=== PATIENT | female | born 1995 | race Caucasian/White ===

== ENCOUNTER 2017-05-18 17:32 | Inpatient (IN) | payer OTHER ==
[~2017-05-18] VITALS: Ht 165.1 cm; Wt 69.0 kg
[~2017-05-18 17:32] MED LIST: ACYC400T PO; Z.0.BCPILL PO; ZITH250T PO
[2017-05-18 17:56] VITALS: BP 131/93; PULSE 104; RESP 17; TEMP 98.1; O2SAT 99
[2017-05-18] MEDS ORDERED: ACYC400T PO (18:01)
[2017-05-18] MEDS ORDERED: SODIUM CHLOR 0.9% 1000 ML INJ 1,000 ML IV SCH (18:05)
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
[2017-05-18] MEDS ORDERED: MORPHINE SULFATE 4 MG/ML INJ IV PUSH ONE ×2 (18:15→19:30)
[2017-05-18] MEDS ORDERED: SODIUM CHLORIDE 0.9% FLUSH 10 ML FLUSH IV FLUSH PRN (18:15)
[2017-05-18] MEDS ORDERED: ONDANSETRON HCL 4 MG/2 ML VIAL IVP ONE (18:15)
[2017-05-18] MEDS ORDERED: KETOROLAC TROMETHAMINE 30 MG/ML (IVP) VIAL IVP ONE (18:15)
[2017-05-18] MEDS ORDERED: TETANUS/DIPHTHERIA TOXOID ADULT 0.5 ML VIAL IM ONE (18:30)
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
--- NOTE | 2017-05-18 19:20 | PD ---
Data Data Last Documented VS Vital Signs Date Time Temp Pulse Resp B/P (MAP) Pulse Ox O2 Delivery O2 Flow Rate FiO2 05/18/17 17:56 98.1 104 17 131/93 (106) 99 Orders Orders Ice/Cold Pack (05/18/17 18:05) Basic Metabolic Panel (Bmp) (05/18/17 18:05) Complete Blood Count With Diff (05/18/17 18:05) Iv Access Insert/Monitor (05/18/17 18:05) Ecg Monitoring (05/18/17 18:05) Oximetry (05/18/17 18:05) Morphine Inj (Morphine Inj) (05/18/17 18:15) Ondansetron Inj (Zofran Inj) (05/18/17 18:15) Sodium Chlor 0.9% 1000 Ml Inj (Ns 1000 M (05/18/17 18:05) Sodium Chloride 0.9% Flush (Ns Flush) (05/18/17 18:15) Ketorolac Inj (Toradol Inj) (05/18/17 18:15) Tetanus/Diphtheria Tox Adult (Tetanus/Di (05/18/17 18:30) Elbow, Limited (Ap&Lat) (05/18/17 18:05) Wrist, Limited (Ap&Lat) (05/18/17 18:05) NPO (05/18/17 18:58) Splinting (05/18/17 ) Morphine Inj (Morphine Inj) (05/18/17 19:30) Diet Regular Basic (05/19/17 Breakfast) Diet Npo (05/19/17 Breakfast) Admit Order (Ed Use Only) (05/18/17 19:33) Vital Signs (Adult) Q4H (05/18/17 19:33) Activity Oob With Assistance (05/18/17 19:33) Consult Orthopedic (05/18/17 ) Morphine Inj (Morphine Inj) (05/18/17 19:45) Ondansetron Inj (Zofran Inj) (05/18/17 19:45) Diet Regular Basic (05/18/17 Dinner) Labs Laboratory Tests Test 05/18/17 19:00 [facility] Medical Record Reviewed: Yes Supervised Visit with ONEL: No Narrative Course Please see previous providers notes. I assumed care of this patient pending orthopedic consultation. I discussed the case and injury with the on-call orthopedist Dr. Mckenzie who would like the patient to be placed in a splint, npo after midnight, admission to the medicine team. Discussed with the patient and family who are agreeable. She declines additional pain medication at this time. Diagnosis Primary Impression: Left elbow fracture Admitting Information Admitting Physician Requests: Observation Condition: Stable Juan Manuel Lipscomb May 18, 2017 19:20
[2017-05-18 19:40] LABS: AUTOMATED NEUTROPHIL # 12.7 TH/MM3 (1.8-7.7); BASOPHIL % 0.2 % (0.0-2.0); EOSINOPHIL # 0.1 TH/MM3 (0-0.4); EOSINOPHIL % 0.6 % (0.0-4.0); HEMATOCRIT 37.2 % (35.0-46.0); HEMOGLOBIN 12.1 GM/DL (11.6-15.3); LYMPH % 10.5 % (9.0-44.0); LYMPHOCYTE # 1.6 TH/MM3 (1.0-4.8); MEAN CORPUSCULAR HGB CONC 32.6 % (32.0-36.0); MEAN PLATELET VOLUME 8.7 FL (7.0-11.0); MONO % 5.9 % (0.0-8.0); MONOCYTE # 0.9 TH/MM3 (0-0.9); NEUT % 82.8 % (16.0-70.0); PLATELET COUNT 308 TH/MM3 (150-450); RED BLOOD COUNT 4.33 MIL/MM3 (4.00-5.30); RED CELL DISTRIBUTION WIDTH 12.6 % (11.6-17.2); WHITE BLOOD COUNT 15.4 TH/MM3 (4.0-11.0)
[2017-05-18] MEDS ORDERED: ONDANSETRON HCL 4 MG/2 ML VIAL IV PUSH PRN (19:45)
[2017-05-18] MEDS ORDERED: MORPHINE SULFATE 4 MG/ML INJ IV PUSH PRN (19:45)
[2017-05-18 19:54] LABS: BICARBONATE 25.2 MEQ/L (21.0-32.0); CALCIUM 8.2 MG/DL (8.5-10.1); CREATININE 0.47 MG/DL (0.50-1.00)
[2017-05-18 20:16] VITALS: RESP 16; O2SAT 99
[2017-05-18 20:17] VITALS: BP 121/64; PULSE 98; RESP 18; O2SAT 99
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
[2017-05-18 23:05] VITALS: BP 118/70; PULSE 91; RESP 18; TEMP 97.9; O2SAT 100; O2SAT 91
[2017-05-19 04:36] VITALS: BP 108/71; PULSE 81; RESP 18; TEMP 97.6; O2SAT 100
[2017-05-19] MEDS ORDERED: POVIDONE IODINE 5% (ANTISEPSIS KIT) 4 APPLICATIONS EACH NARE PRN (06:30)
[2017-05-19] MEDS ORDERED: CHLORHEXIDINE GLUCONATE 2 % 1 PACK (2 CLOTHS) TOPICAL PRN (06:30)
[2017-05-19] MEDS ORDERED: SODIUM CHLORID 0.9% 500 ML IV PRN (06:30)
[2017-05-19] MEDS ORDERED: METOPROLOL TARTRATE 25 MG TAB PO PRN (06:30)
[2017-05-19] MEDS ORDERED: LACTATED RINGER'S 1000 ML IV PRN (06:30)
[2017-05-19] MEDS ORDERED: SODIUM CHLOR 0.9% 250 ML INJ 250 ML ONE (06:41)
[2017-05-19] MEDS ORDERED: VANCOMYCIN HCL 1000 MG VIAL ONE (06:41)
[2017-05-19] MEDS ORDERED: GENTAMICIN SULFATE 80 MG/2 ML VIAL ONE (06:41)
[2017-05-19] MEDS ORDERED: ceFAZolin INJ 1,000 MG VIAL ONE (07:18)
[2017-05-19] MEDS ORDERED: BACITRACIN TOP OINT 15 GM TUBE ONE (07:52)
[2017-05-19] MEDS ORDERED: BUPIVACAINE/EPINEPHRINE 0.25% PF 10 ML VIAL ONE (07:52)
--- NOTE | 2017-05-19 08:28 | PD.OP ---
cc: Cameron Silva MD Operative Report Date of Surgery: May 19, 2017 Preoperative Diagnosis: Displaced left distal humerus lateral condyle fracture, minimally displaced left coronoid process fracture Postoperative Diagnosis: Procedure: Open reduction internal fixation left distal humerus lateral condyle fracture Anesthesia: Gen. Surgeon: Cameron Silva Sky Diver(s): NAM Beck PA-C The surgical procedure was assisted by my physician desk assistant. My P.A. presence was necessary throughout this case for the manipulation and positioning of the surgical extremity. My P.A. was assisting me throughout the duration of this procedure. The skill set of a physician desk assistant was medically necessary to complete this procedure. During the surgical case the emissions testing technician was working at the back table and the physician desk assistant was directly assisting me. Operation and Findings: Patient was seen and evaluated preoperatively. Treatment options were discussed regarding left distal humerus fracture including surgical and nonsurgical treatments. After detailed discussion of risk and benefits of procedure patient wishes to proceed with surgery. Risks of surgery include bleeding, infection, nonunion, malunion, painful hardware, loss of motion of shoulder and elbow, weakness and numbness of arm, ulnar nerve injury as well as medical competitions including blood clots stroke and . Patient was brought to operating room and placed on the OR table. GETA was administered by anesthesiologist. Patient was positioned in lateral decubitus position. Extremities were well-padded. Axillary roll was placed. Operative arm and shoulder were prepped with alcohol followed by Hibiclens and draped usual sterile fashion. Timeout procedure was performed. IV antibiotics were given prior to incision. A standard posterior approach was utilized. Subcutaneous tissues was dissected with Bovie. The lateral border of the triceps was elevated off of the distal humerus. Fracture site was visualized. Soft tissue was removed from the fracture site. Fracture site was cleaned with curettes. At this point the fracture was reduced using fracture tenaculums. The lateral condyle fragment keyed into anatomic alignment. Multiplanar fluoroscopy confirmed excellent of fracture. A Synthes lateral distal humerus plate was selected. . 3.5 cortical screws were placed to compress plate to bone. Multiple 2.7 locking screws were placed distally. Care was taken to keep screws from penetrating the articular surface. Multiple screws were placed in each side of the fracture. All screws were predrilled and premeasured for appropriate length. K wires were removed. Final fluoroscopy revealed excellent alignment of fracture with well-placed hardware. The medial coronoid process fracture appeared to be stable and well aligned. Incision was thoroughly irrigated. Fascia was closed with #1 Vicryl, subcutaneous tissues closed with 3-0 Vicryl, and skin was closed with yogi. Sterile dressings were applied. Needle and sponge counts were correct. Patient was placed into a sling, and then transferred to recovery room in stable condition Cameron Silva MD May 19, 2017 08:28
[2017-05-19] MEDS ORDERED: HYDR-3366 PO (08:29)
[2017-05-19] MEDS ORDERED: diphenhydrAMINE HCL 25 MG CAP PO PRN (08:30)
[2017-05-19] MEDS ORDERED: DO NOT ADM ANY ANTICOAGULANT DRUGS PRN (08:41)
[2017-05-19] MEDS ORDERED: *MEPERIDINE 25 MG INJ VIAL PERIprocedural Use ONLY ONE (08:42)
[2017-05-19] MEDS ORDERED: ACETAMINOPHEN 1000 MG/100 ML 100 ML IV ONE (08:46)
[2017-05-19] MEDS ORDERED: MIDAZOLAM HCL 2 MG/2 ML VIAL ONE (08:47)
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
[2017-05-19] MEDS ORDERED: *morphine SULFATE 4 MG/ML PERIprocedure ONLY ONE ×2 (08:58→09:20)
[2017-05-19] MEDS ORDERED: CHOLECALCIFEROL (VIT D3) 1000 UNIT TAB PO SCH (09:00)
[2017-05-19] MEDS ORDERED: DOCUSATE SODIUM 50 MG/SENNA 8.6 MG TAB PO SCH (09:00)
[2017-05-19 09:34] VITALS: BP 109/62; PULSE 74; RESP 14; TEMP 98.6; O2SAT 96
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
--- NOTE | 2017-05-19 10:58 | RADRPT ---
EXAM DATE/TIME: 05/19/2017 08:10 [place] COMPARISON: ELBOW LEFT LIMITED (AP & LAT), May 18, 2017, 18:30. INDICATIONS : Left elbow open reduction internal fixation of a distal humeral fracture. MEDICAL HISTORY : None. SURGICAL HISTORY : None. ENCOUNTER: Initial ACUITY: 1 day PAIN SCORE: Non-responsive. LOCATION: Left elbow FINDINGS: 5 views of left elbow were obtained and demonstrate a screw plate fixation device transfixing the dis nic humeral fracture. Fracture fragments are in anatomic alignment. The joint spaces of the elbow are congruent. CONCLUSION: Status post open ridgid internal fixation. Nikita Khalil MD on May 19, 2017 at 10:55 Board Certified Radiologist. This report was verified electronically.
[2017-05-19] MEDS: ACETAMINOPHEN/HYDROcodone 325 MG/10 MG TAB PO PRN ×2 (11:22→16:12)
[2017-05-19] MEDS ORDERED: NEOSTIGMINE 5 MG/5 ML SYRINGE IV PUSH ONE (12:00)
[2017-05-19] MEDS ORDERED: LIDOCAINE HCL 1% PF 5 ML SYRINGE OTHER ONE (12:00)
[2017-05-19] MEDS ORDERED: ceFAZolin 2 GM PREMIX 50 ML IV SCH (12:00)
[2017-05-19] MEDS ORDERED: ROCURONIUM INJ 50 MG/5 ML SYRINGE IV PUSH ONE (12:00)
[2017-05-19] MEDS ORDERED: DEXAMETHASONE SOD PHOS 4 MG/ML VIAL IV ONE (12:00)
[2017-05-19] MEDS ORDERED: ONDANSETRON HCL 4 MG/2 ML VIAL IV ONE (12:00)
[2017-05-19] MEDS ORDERED: PROPOFOL 200 MG/20 ML AMP IV ONE (12:00)
[2017-05-19] MEDS ORDERED: GLYCOPYRROLATE 1 MG/5 ML SYRINGE IV PUSH ONE (12:00)
[2017-05-19 12:08] VITALS: BP 101/69; PULSE 85; RESP 14; TEMP 97.6; O2SAT 98
[2017-05-19 16:14] VITALS: BP 117/70; PULSE 99; RESP 14; TEMP 97.8; O2SAT 98
[2017-05-19] MEDS ORDERED: ZOFR4TAB PO (17:00)
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
== END 2017-05-19 20:17 | disposition home or self-care (01) | DRG 494 ==
LOC: NEPD 17:32 → NEDA 19:36 → NEPFCDU 21:17 → OBSVTOIN 05-19 10:41
PROVIDERS: ADMIT Hospitalist; ATTEND Hospitalist
PROC: 2W39X1Z Immobilization of Left Upper Extremity using Splint (ICD-10-PCS; 2017-05-18)
PROC: 0PSG04Z Reposition Left Humeral Shaft with Internal Fixation Device, Open Approach (ICD-10-PCS; principal; 2017-05-19 07:24)
DX: S42.452A Displaced fracture of lateral condyle of left humerus, initial encounter for closed fracture (principal); S52.042A Displaced fracture of coronoid process of left ulna, initial encounter for closed fracture; S00.81XA Abrasion of other part of head, initial encounter; V43.52XA Car driver injured in collision with other type car in traffic accident, initial encounter; W22.11XA Striking against or struck by driver side automobile airbag, initial encounter; Y92.410 Unspecified street and highway as the place of occurrence of the external cause; A60.00 Herpesviral infection of urogenital system, unspecified
CPT/HCPCS: 73070; 73080; 73100; 76000; 80048; 85025; 90714; 96361; 96372; 96374; 96375; 96376; C1713; G0378; J0131; J0690; J1100; J1580; J1885; J2175; J2250; J2270; J2405; J2710; J3010; J3370; J7030; J7050